=== PATIENT | female | born 2000 | race Caucasian/White ===

== ENCOUNTER 2022-11-04 13:13 | Emergency (ER) | payer OTHER ==
[~2022-11-04] VITALS: Ht 165.1 cm; Wt 56.0 kg
[2022-11-04 13:26] VITALS: BP 129/81
--- NOTE | 2022-11-04 13:47 | NUR ---
Met with patient in regards to substance use and patient wanting to start Suboxone. I talked to Myles one of them will start patient on Suboxone. Gave patient a card for [facility] and my card to call me with any questions.
[2022-11-04 14:40] LABS: BASOPHILS % (AUTO) 0.3 % (0-1); EOSINOPHILS % (AUTO) 0.1 % (0-6); HEMATOCRIT 41.3 % (35.0-45.0); HEMOGLOBIN 14.1 g/dl (12.0-16.0); LYMPHOCYTES # (AUTO) 3.7 X10'3 (1.1-4.8); LYMPHOCYTES % (AUTO) 31.9 % (21-51); MEAN CORPUSCULAR HEMOGLOBIN 28.8 PG (27.0-31.0); MEAN CORPUSCULAR HGB CONC 34.1 g/dL (33.0-36.5); MEAN CORPUSCULAR VOLUME 84.5 FL (78-98); MEAN PLATELET VOLUME 7.9 FL (7.4-10.4); MONOCYTES # (AUTO) 1.1 X10'3 (0-0.9); MONOCYTES % (AUTO) 9.6 % (2-12); NEUTROPHILS # (AUTO) 6.7 X10'3 (1.8-7.7); NEUTROPHILS % (AUTO) 58.1 % (42-75); PLATELET COUNT 356 X10'3 (140-440); RED BLOOD COUNT 4.88 X10'6 (4.20-5.60); RED CELL DISTRIBUTION WIDTH 13.7 % (11.5-14.5); WHITE BLOOD COUNT 11.5 X10'3 (4.5-11.0)
[2022-11-04] MEDS ORDERED: ondansetron 4mg rapidly disintigrating tab PO STA (14:43)
[2022-11-04] MEDS ORDERED: buprenorphine/naloxone 8MG-2MG SUBlingual film SL STA (14:43)
[2022-11-04] MEDS ORDERED: dicyclomine 10 MG capsule PO ONE (14:45)
[2022-11-04] MEDS ORDERED: famotidine 20mg tablet PO ONE (14:45)
[2022-11-04 14:59] LABS: ALANINE AMINOTRANSFERASE 14 U/L (12-78); ALBUMIN 4.4 G/DL (3.4-5.0); ALBUMIN/GLOBULIN RATIO 1.3 (1.1-1.5); ALKALINE PHOSPHATASE 80 IU/L (46-116); ANION GAP 12 (8-16); ASPARTATE AMINO TRANSFERASE 12 U/L (10-37); BILIRUBIN,TOTAL 0.5 MG/DL (0.1-1.0); BLOOD UREA NITROGEN 16 MG/DL (7-18); BUN/CREATININE RATIO 18.4 (10.0-20.0); CALCIUM 8.7 MG/DL (8.5-10.1); CHLORIDE 101 MMOL/L (99-107); CREATININE 0.87 MG/DL (0.40-0.90); GLUCOSE 97 MG/DL (70-104); POTASSIUM 3.2 MMOL/L (3.5-5.1); SODIUM 140 MMOL/L (135-145); TOTAL CARBON DIOXIDE 26.6 MMOL/L (24-32); TOTAL PROTEIN 7.7 G/DL (6.4-8.2); eGFR 81 ML/MIN
[2022-11-04] MEDS ORDERED: BUPR1FIL3 SL (15:46)
[2022-11-04] MEDS ORDERED: ONDA4TAB12 PO (15:46)
[2022-11-04] MEDS ORDERED: QUET-1 PO (15:46)
== END 2022-11-04 16:25 | disposition home or self-care (01) ==
LOC: ER 13:13
DX: F19.239 Other psychoactive substance dependence with withdrawal, unspecified (principal); F11.23 Opioid dependence with withdrawal
CPT/HCPCS: 36415; 80053; 83735; 85025; 99284